=== PATIENT | female | born 1965 | race African-American/Black ===

== ENCOUNTER 2018-03-12 19:57 | Emergency (ER) | payer SELFPAY ==
[~2018-03-12] VITALS: Ht 170.2 cm; Wt 91.0 kg
[2018-03-12 20:01] VITALS: BP 156/105
== END 2018-03-12 22:32 | disposition left against medical advice (07) ==
LOC: ER 19:57
DX: Z53.21 Procedure and treatment not carried out due to patient leaving prior to being seen by health care provider (principal)